=== PATIENT | female | born 1975 | race Caucasian/White ===

== ENCOUNTER 2018-09-17 14:30 | Outpatient (RCR) | payer OTHER, SELFPAY ==
--- NOTE | 2018-09-22 13:11 | OT.OP.EVAL ---
Visit Care Team Role Provider Type Other Providers Specialty: Address: Phone: Fax: Email: Aria Kee MD Attending Provider Non-Staff Primary Care Provider Specialty: Family Practice Address: [address] [place] [address], [id number] Email: Occupational Therapy Initial Evaluation OT Outpatient Adult Evaluation Start: 09/01/18 14:32 Freq: Status: Active Protocol: Document 08/28/18 15:10 AMS (Rec: 09/01/18 15:02 AMS [email or web address]) General Information Visit Start Time 15:10 Visit Stop Time 15:55 Total Visit Minutes 45 Plan of Care Dates 08/28/18-11/20/18 Insurance Information Treatment Setting Outpatient Care Note Type Initial Evaluation Identification Confirmed Yes Medical History Patient completed Medical History form. Placed in paper chart. Therapy Pain Assessment When Pain Assessed pre-treat Pain Present Pain Reported Right Dorsal Wrist Intensity 2 Scale Used Numeric (1 - 10) Right Volar Hand Scale Used 1-3 Left Volar Hand Scale Used 2-3/10 Posterior Neck Intensity 3 Scale Used Numeric (1 - 10) Left Volar Wrist Scale Used 1-2/10 Right Anterior Shoulder Intensity 3 Scale Used Numeric (1 - 10) Right Distal Volar Arm Intensity 2 Scale Used Numeric (1 - 10) Patient Questionnaires Quick Dash UE Score 43.18 Quick Dash UE Impairment 40 to 59% Impaired (Score 40- 59) IADLs Comments Impaired Observations Type [id number] splints Provided By PCP Wearing Schedule Night time - not tolerating per patient report Observations (+) tenderness reported w/ R Robert's Maneuver. Neurological Assessment - Adult Phalen's Test Left or Right Bilateral Scale Positive Goals Treatment HEP. Instructed in tendon glides, median nerve glides, wrist stretches. Assisted Goals 1. Patient will be modified independent with distal UE home exercise program utilizing provided written and visual instructions. 2. Patient will demonstrate improved ability to engage in meaningful activities, as evidenced by obtaining a score of 20.00 or less on the Quick DASH UE Outcome Measure. 3. Patient will present with decreased pain of distal upper extremities, as evidenced by indication of 1 or less out of 10 on the Pain Assessment Grid at all times (at rest and with movement). Assessment/Plan Patient Response Good Rehabilitation Potential Good Impairments Identified Coordination/Dexterity Flexibility Functional Activities Pain Weakness Range of Motion Recreational Activities Meaningful Activities Stiffness Soft Tissue Mobility Treatment Assessment Patient is a 43 year-old female referred to outpatient OT secondary to carpal tunnel syndrome bilaterally. PMH: Medical Health History completed by patient and placed in paper chart; significant for headaches; back pain; fibromyalgia; neck pain; and easily bruised. Patient reported being provided w/ [id number] night splints bilaterally for CTS; however, patient reported splints exacerbated symptoms and were poor fitting. Evaluation findings: (+) reproduction of symptoms bilaterally w/ Phalen's test; (+) discomfort reported w/ R Robert's w/ denial of L; poor fitting bilateral night splints; currently not executing nerve glides, tendon glides, wrist stretches and/ or implementing strategies to alleviate symptoms; decreased ability to actively participate in daily meaningful activities pain- free. Outpatient OT recommended to address these identified areas of impairment to determine if conservative methods of treatment (e.g., nerve glides, tendon glides, distal UE stretches, modalities) can alleviate discomfort and symptoms in order to permit patient to return to daily meaningful activities. Home Exercise Program Please refer to treatment section of note for specific details. Comment 12 weeks Treatment Frequency Once a Week Therapeutic Contents Active Range of Motion Adaptive Equipment Education Client Education Functional Activities Home Exercise Program Joint Protection Manual Therapy Education Neuromuscular Re-Education Orthotic Fitting & Training Self-Care Stretching/Flexibility Activities Therapeutic Activities Therapeutic Exercises Modalities Sensory Re-education Modalities As Needed As Prescribed Types of Modalities Contrast Bath E-Stim Functional Stimulation (FES) Ice Massage T.E.N. Stimulation Ultrasound Patient Instruction Home Exercise Program Plan of Care Questions/Concerns Occupational Therapy Assessment OT Outpatient Range of Motion Start: 09/01/18 14:32 Freq: Status: Active Protocol: Document 08/28/18 15:10 AMS (Rec: 09/01/18 15:02 AMS [email or web address]) ROM - Wrist Wrist Range of Motion Measured in Degrees Right ROM Testing Position Sitting Wrist Flex AROM (degrees) 60 Wrist Ext AROM Fingers Open (degrees) 0-55 Ulnar Deviation AROM (degrees) 0-20 Radial Deviation AROM (degrees) 0-20 Left ROM Testing Position Sitting Wrist Flex AROM (degrees) 0-60 Wrist Ext AROM Fingers Open (degrees) 0-60 Ulnar Deviation AROM (degrees) 0-20 Radial Deviation AROM (degrees) 0-15
--- NOTE | 2018-11-05 14:56 | OT.OP.DC ---
Visit Care Team Role Provider Type Other Providers Address: Phone: Fax: Email: Aria Kee MD Attending Provider Non-Staff Primary Care Provider Address: [address] [place] [address], [phone] Email: OT Outpatient OT Outpatient Adult Evaluation Start: 09/01/18 14:32 Freq: Status: Active Protocol: Document 08/28/18 15:10 AMS (Rec: 09/01/18 15:02 AMS [email or web address]) General Information Session Time Visit Start Time 15:10 Visit Stop Time 15:55 Total Visit Minutes 45 Visit Information Plan of Care Dates 08/28/18-11/20/18 Insurance Information Setting Treatment Setting Outpatient Care Visit Type Note Type Initial Evaluation Identification Identification Confirmed Yes Medical Information Medical History Patient completed Medical History form. Placed in paper chart. Therapy Pain Assessment Pain When Pain Assessed pre-treat Pain Present Pain Present Pain Reported Location Right Dorsal Wrist Intensity 2 Scale Used Numeric (1 - 10) Right Volar Hand Scale Used 1-3 Left Volar Hand Scale Used 2-3/10 Posterior Neck Intensity 3 Scale Used Numeric (1 - 10) Left Volar Wrist Scale Used 1-2/10 Right Anterior Shoulder Intensity 3 Scale Used Numeric (1 - 10) Right Distal Volar Arm Intensity 2 Scale Used Numeric (1 - 10) Patient Questionnaires Quick Dash- Upper Extremity Quick Dash UE Score 43.18 Quick Dash UE Impairment 40 to 59% Impaired (Score 40- 59) IADLs Overall Function Comments Impaired Observations Prosthetic Management Type [id number] splints Provided By PCP Wearing Schedule Night time - not tolerating per patient report Observations Observations (+) tenderness reported w/ R Robert's Maneuver. Neurological Assessment - Adult Neurological Function - Wrist/Hand Phalen's Test Left or Right Bilateral Scale Positive Goals Treatment Treatment HEP. Instructed in tendon glides, median nerve glides, wrist stretches. Retirement Goals Administrative Assistant Data Entry Goals 1. Patient will be modified independent with distal UE home exercise program utilizing provided written and visual instructions. 2. Patient will demonstrate improved ability to engage in meaningful activities, as evidenced by obtaining a score of 20.00 or less on the Quick DASH UE Outcome Measure. 3. Patient will present with decreased pain of distal upper extremities, as evidenced by indication of 1 or less out of 10 on the Pain Assessment Grid at all times (at rest and with movement). Assessment/Plan Assessment Patient Response Good Rehabilitation Potential Good Impairments Identified Coordination/Dexterity Flexibility Functional Activities Pain Weakness Range of Motion Recreational Activities Meaningful Activities Stiffness Soft Tissue Mobility Treatment Assessment Patient is a 43 year-old female referred to outpatient OT secondary to carpal tunnel syndrome bilaterally. PMH: Medical Health History completed by patient and placed in paper chart; significant for headaches; back pain; fibromyalgia; neck pain; and easily bruised. Patient reported being provided w/ [id number] night splints bilaterally for CTS; however, patient reported splints exacerbated symptoms and were poor fitting. Evaluation findings: (+) reproduction of symptoms bilaterally w/ Phalen's test; (+) discomfort reported w/ R Robert's w/ denial of L; poor fitting bilateral night splints; currently not executing nerve glides, tendon glides, wrist stretches and/ or implementing strategies to alleviate symptoms; decreased ability to actively participate in daily meaningful activities pain- free. Outpatient OT recommended to address these identified areas of impairment to determine if conservative methods of treatment (e.g., nerve glides, tendon glides, distal UE stretches, modalities) can alleviate discomfort and symptoms in order to permit patient to return to daily meaningful activities. Home Exercise Program Please refer to treatment section of note for specific details. Plan Comment 12 weeks Treatment Frequency Once a Week Therapeutic Contents Active Range of Motion Adaptive Equipment Education Client Education Functional Activities Home Exercise Program Joint Protection Manual Therapy Education Neuromuscular Re-Education Orthotic Fitting & Training Self-Care Stretching/Flexibility Activities Therapeutic Activities Therapeutic Exercises Modalities Sensory Re-education Modalities As Needed As Prescribed Types of Modalities Contrast Bath E-Stim Functional Stimulation (FES) Ice Massage T.E.N. Stimulation Ultrasound Patient Instruction Home Exercise Program Plan of Care Questions/Concerns Sensory Assessment Sensory Profile2 Functional Wrist/Hand Scan Hand Side OT Outpatient Range of Motion Start: 09/01/18 14:32 Freq: Status: Active Protocol: Document 08/28/18 15:10 AMS (Rec: 09/01/18 15:02 AMS [email or web address]) ROM - Wrist Wrist Range of Motion Measured in Degrees Right ROM Testing Position Sitting Wrist Flex AROM (degrees) 60 Wrist Ext AROM Fingers Open (degrees) 0-55 Ulnar Deviation AROM (degrees) 0-20 Radial Deviation AROM (degrees) 0-20 Left ROM Testing Position Sitting Wrist Flex AROM (degrees) 0-60 Wrist Ext AROM Fingers Open (degrees) 0-60 Ulnar Deviation AROM (degrees) 0-20 Radial Deviation AROM (degrees) 0-15 OT Outpatient Treatment Note - Adult Start: 09/01/18 14:32 Freq: Status: Active Protocol: Document 11/05/18 14:53 AMS (Rec: 11/05/18 14:55 AMS [email or web address]) OT Outpatient Adult Treatment Note Visit Information Plan of Care Dates 08/28/18-11/20/18 Setting Treatment Setting Outpatient Care Visit Type Note Type Discharge Summary General Information General Information Patient is a 43 year-old female referred to outpatient OT secondary to carpal tunnel syndrome bilaterally. PMH: Medical Health History completed by patient and placed in paper chart; significant for headaches; back pain; fibromyalgia; neck pain; and easily bruised. Patient reported being provided w/ [id number] night splints bilaterally for CTS; however, patient reported splints exacerbated symptoms and were poor fitting. - Subjective Observations Patient has not been seen in the outpatient setting by OT since 09/17/18; given that patient has not been seen in 30 days, patient to be discharged. - Objective Retirement Goals ALL GOALS D/C OF 11/05/18 1. Patient will be modified independent with distal UE home exercise program utilizing provided written and visual instructions. 2. Patient will demonstrate improved ability to engage in meaningful activities, as evidenced by obtaining a score of 20.00 or less on the Quick DASH UE Outcome Measure. 3. Patient will present with decreased pain of distal upper extremities, as evidenced by indication of 1 or less out of 10 on the Pain Assessment Grid at all times (at rest and with movement). - - Assessment Assessment of Improvement Patient has not been seen in the outpatient setting by OT since 09/17/18; given that patient has not been seen in 30 days, patient to be discharged. - Plan Therapy Recommendations Discharge from Occupational Therapy
== END 2018-11-12 14:03 ==
LOC: OT 14:30
PROVIDERS: PCP Family Medicine; Visit Provider Family Medicine
DX: G56.00 Carpal tunnel syndrome, unspecified upper limb (principal)
CPT/HCPCS: 97035; 97110; 97165